=== PATIENT | female | born 1995 ===

== ENCOUNTER 2016-09-21 13:47 | Emergency (ER) | payer BC, MEDICAID ==
--- NOTE | 2016-09-21 14:19 | UC ---
Yadiel Jeffery Benjamin, scribed for Eric Hernandez MD on 09/21/16 at 1413 . Throat Pain/Nasal Amauri HPI - HPI Summary HPI Summary: 20yo female c/o congestion for 6 days. Reports yellow-green snots, sinus pressure, chest congestion, sore throat, diffuse body aches. Denies neck pain, cough, fever, chills, or ear aches. - History of Current Complaint Chief Complaint: UCRespiratory Stated Complaint: SORE THROAT, CONGESTION Time Seen by Provider: 09/21/16 13:59 Hx Obtained From: Patient Hx Last Menstrual Period: 09/16/16 ?: No Onset/Duration: Gradual Onset, Lasting Weeks - 1 week, Still Present Severity: Mild Cough: Sputum Appears - yellow green Associated Signs & Symptoms: Positive: Sinus Discomfort - Allergies/Home Medications Allergies/Adverse Reactions: Allergies Allergy/AdvReac Type Severity Reaction Status Date / Time No Known Allergies Allergy Verified 09/21/16 13:56 Home Medications: Home Medications Loratadine [Claritin 10 MG CAP] 1 tab PO DAILY 09/21/16 [History Confirmed 09/21] PMH/Surg Hx/FS Hx/Imm Hx Previously Healthy: Yes - Surgical History Surgical History: None - Family History Known Family History: Negative: Cardiac Disease, Hypertension, Diabetes - Social History Occupation: Student Lives: With Family Alcohol Use: None Substance Use Type: None Smoking Status (MU): Never Smoked Tobacco Household Exposure Type: Cigarettes Review of Systems Constitutional: Negative Skin: Negative Eyes: Negative ENT: Sore Throat, Nasal Discharge Respiratory: Negative Cardiovascular: Negative Gastrointestinal: Negative Genitourinary: Negative Motor: Negative Neurovascular: Negative Musculoskeletal: Myalgia - diffusely Neurological: Negative Psychological: Negative All Other Systems Reviewed And Are Negative: Yes Physical Exam Triage Information Reviewed: Yes Appearance: No Pain Distress, Well-Nourished, Ill-Appearing - midly Vital Signs: Initial Vital Signs Temp 99.8 F 09/21/16 13:50 Pulse 121 09/21/16 13:50 Resp 18 09/21/16 13:50 BP 109/64 09/21/16 13:50 Pulse Ox 100 09/21/16 13:50 Vital Signs Reviewed: Yes Eye Exam: Normal ENT: Positive: Pharynx normal, Nasal drainage - clear, TMs normal Neck: Positive: Supple, Nontender Respiratory: Positive: Chest non-tender, Lungs clear, Normal breath sounds, No respiratory distress Cardiovascular: Positive: RRR, No Murmur Abdomen Description: Positive: Nontender, Soft Bowel Sounds: Positive: Present Musculoskeletal: Positive: Strength Intact, ROM Intact Neurological: Positive: Alert, Muscle Tone Normal Psychological: Positive: Age Appropriate Behavior Skin Exam: Normal Skin: Negative: rashes Throat Pain/Nasal Course/Dx - Differential Dx/Diagnosis Provider Diagnoses: SINUSITIS Discharge - Discharge Plan Condition: Stable Disposition: HOME Prescriptions: Amoxicillin/Clavulanate TAB* [Augmentin TAB 875*] 875 mg PO BID #20 tab Patient Education Materials: Sinusitis (ED) Referrals: Non Staff,Doctor [Primary Care Provider] - Additional Instructions: FOLLOW UP WITH YOUR DOCTOR. RETURN TO THE EMERGENCY DEPARTMENT FOR ANY WORSENING OF YOUR CONDITION OR QUESTIONS OR CONCERNS. The documentation as recorded by the Yadiel fairbanks Benjamin accurately reflects the service I personally performed and the decisions made by me, Eric Hernandez MD.
== END 2016-09-21 14:27 | disposition home or self-care (01) ==
LOC: UCEAST 13:47
DX: J32.9 Chronic sinusitis, unspecified (principal)
CPT/HCPCS: 99202; G0463